=== PATIENT | female | born 1960 ===

== ENCOUNTER 2017-09-15 11:29 | Day surgery (SDC) | payer OTHER ==
[2013-06-12 10:32] VITALS: BMI 24.4
--- NOTE | 2017-09-15 13:11 | CP.SDSHP ---
Same Day Surgery H & P - History Proposed Procedure: COLONOSCOPY screening - Previous Medical/Surgical History Endocrine/Metabolic: Thyroid Disease, Renal Disease - Allergies Allergies: Allergies latex Allergy (Verified 09/15/17 12:27) ITCHING - Physical Exam Vital Signs: Vital Signs 09/15/17 11:50 Temperature 97 F L Pulse Rate 65 Respiratory 19 Rate Blood Pressure 121/72 O2 Sat by Pulse 98 Oximetry Short Stay Discharge - Short Stay Discharge Admitting Diagnosis/Reason for Visit: ENCOUNTER FOR SCREENING FOR MALIGNANT NEOPLASM OF Disposition: HOME/ ROUTINE
[2017-09-15 13:22] LABS: CALCIUM 8.7 mg/dl (8.6-10.4); POTASSIUM 5.1 mmol/L (3.6-5.2)
[2017-09-15] MEDS ORDERED: Propofol 10 mg/ml Inj (20 ML) ONE ×2 (13:24→13:34)
[2017-09-15 13:55] VITALS: TEMP 97.5
[2017-09-15 14:36] VITALS: BP 113/78; PULSE 72; RESP 12; O2SAT 98
== END 2017-09-15 14:34 | disposition home or self-care (01) ==
LOC: C.ENDO 11:29
PROVIDERS: ATTEND Colon & Rectal Surgery
DX: Z12.11 Encounter for screening for malignant neoplasm of colon (principal); K63.5 Polyp of colon; K64.8 Other hemorrhoids
CPT/HCPCS: 36415; 45380; 80048; 88305; J2704; J3010; J7040